=== PATIENT | female | born 1975 | race Two or more races ===

== ENCOUNTER → 2025-04-24 | Outpatient (CLI) | payer MEDICAID, SELFPAY ==
--- NOTE | 2025-04-24 11:00 | XR_ITS ---
Examination: Abdomen sonogram, complete Date and time of exam: 06/25/2025 1150 hours INDICATIONS: Right upper abdominal pain beginning 3 months ago. Technique: Multiple real-time grayscale transabdominal sonographic images of the abdomen have been obtained. Findings: Normal gallbladder. Normal common bile duct 0.5 cm Pancreatic head 2.5 cm Aorta not enlarged. Liver 19.8 cm fatty infiltration smooth contour Normal hepatopedal portal venous flow Patent IVC Right kidney 11.0 cm renal cortex 1.6 cm Left kidney 12.0 cm cortex 2.0 cm Moderate bilateral renal parenchymal scar formation Spleen 9.6 cm IMPRESSION: Normal gallbladder Moderate hepatomegaly fatty infiltration Moderate bilateral renal parenchymal scar formation
== END | disposition home or self-care (01) ==
LOC: CDIM 11:37
PROVIDERS: PCP Nurse Practitioner; Referring Provider Nurse Practitioner; Visit Provider Nurse Practitioner
DX: K76.0 Fatty (change of) liver, not elsewhere classified (principal); N28.89 Other specified disorders of kidney and ureter
CPT/HCPCS: 76700